=== PATIENT | male | born 1970 | race Caucasian/White ===

== ENCOUNTER → 2018-06-19 | Outpatient (CLI) | payer BC ==
[~2018-06-19] MED LIST: ASPIRIN 81M81 MG/TA2 PO; FLEXERIL 1010 MG/TAB PO; NORCO 325 MG-51 TAB PO; PROTONIX 40MG T40 MG PO; WELLBUTRIN XL300 M1 PO; ZESTRIL30 MG PO; ZOCOR 40MG40 MG PO
== END ==
LOC: BHSO 09:13
DX: F41.1 Generalized anxiety disorder (principal)

== ENCOUNTER → 2018-07-11 | Outpatient (CLI) | payer BC | LOC: BHSO 09:34 | DX: F43.10 Post-traumatic stress disorder, unspecified (principal) ==

== ENCOUNTER → 2018-07-25 | Outpatient (CLI) | payer BC | LOC: BHSO 09:51 | DX: F43.10 Post-traumatic stress disorder, unspecified (principal) ==

== ENCOUNTER → 2018-08-22 | Outpatient (CLI) | payer BC | LOC: BHSO 10:01 | DX: F43.10 Post-traumatic stress disorder, unspecified (principal) ==

== ENCOUNTER → 2018-10-17 | Outpatient (CLI) | payer BC | LOC: BHSO 09:07 | DX: F43.10 Post-traumatic stress disorder, unspecified (principal) ==

== ENCOUNTER → 2019-07-18 | Outpatient (CLI) | payer BC | LOC: BHSO 09:29 | DX: F43.10 Post-traumatic stress disorder, unspecified (principal) ==